=== PATIENT | male | born 1955 | race African-American/Black ===

== ENCOUNTER 2016-10-22 21:48 | Emergency (ER) | payer MEDICAID ==
[~2016-10-22] VITALS: Ht 167.6 cm; Wt 136.4 kg
[~2016-10-22 21:48] MED LIST: ATOR-2 PO; BRIM15DR2 EACHEYE; FURO40TA5 PO; GABA-531 PO; GLIP10TA10 PO; LATA2.5D2 EACHEYE; LOSA50TA20 PO; METF10002 PO; RIVA20TA PO; [UNRECOGNIZED DRUG - OTHER] PO; [UNRECOGNIZED DRUG - OTHER] PO
[2016-10-22 23:32] LABS: CLARITY URINE CLEAR (CLEAR); COLOR URINE YELLOW (YELLOW); GLUCOSE URINE NEGATIVE (NEGATIVE); KETONES URINE NEGATIVE (NEGATIVE); LEUKOCYTE ESTERASE URINE NEGATIVE (NEGATIVE); NITRITE URINE NEGATIVE (NEGATIVE); OCCULT BLOOD URINE NEGATIVE (NEGATIVE); PROTEIN URINE 2+ (NEGATIVE); SPECIFIC GRAVITY URINE 1.018 (1.005-1.030); UROBILINOGEN URINE 0.2 E.U./dL (0.2-1.0)
[2016-10-22 23:42] LABS: *AMPHETAMINES SCREEN URINE NEGATIVE (NEGATIVE); *BARBITURATES SCREEN URINE NEGATIVE (NEGATIVE); *BENZODIAZEPINES SCREEN URINE NEGATIVE (NEGATIVE); *COCAINE SCREEN URINE PRESUMTIVE POSITIVE (NEGATIVE); CANNABINOID URINE SCREEN NEGATIVE (NEGATIVE); METHADONE URINE SCREEN NEGATIVE (NEGATIVE); OPIATES URINE SCREEN NEGATIVE (NEGATIVE); PHENCYCLIDINE URINE SCREEN NEGATIVE (NEGATIVE)
[2016-10-22 23:56] LABS: CHLORIDE 109 mEq/L (98-107)
[2016-10-22 23:57] LABS: BASOPHILS % 0.5 % (0.0-2.0); EOSINOPHILS % 2.8 % (0.0-5.0); HEMATOCRIT. 30.2 % (42.0-52.0); LYMPHOCYTES % 28.3 % (20.0-50.0); MEAN CORPUSCULAR HEMOGLOBIN 33.2 pg (28.0-32.0); MEAN CORPUSCULAR VOLUME 100.4 fL (80.0-94.0); MEAN PLATELET VOLUME 8.4 fl (7.4-10.4); MONOCYTES % 7.3 % (2.0-8.0); NEUTROPHILS % 61.1 % (40.0-76.0); PLATELET 243 x1000/uL (130-400); RED BLOOD CELL COUNT 3.01 mill/uL (4.7-6.1); RED CELL DISTRIBUTION WIDTH 16.2 % (11.6-14.6)
[2016-10-23 00:02] LABS: PROTHROMBIN TIME 10.7 sec
[2016-10-23 00:12] LABS: CARBON DIOXIDE 25 mEq/L (21-32); ETHANOL BLOOD < 10 mg/dL
[2016-10-23] MEDS ORDERED: HYDROCODONE/ACETAMINOPHEN 5/325MG TABLET PO ONE (01:45)
[2016-10-23] MEDS: GABAPENTIN 300MG CAPSULE PO SCH ×2 (02:03→14:00)
[2016-10-23] MEDS ORDERED: LOSARTAN POTASSIUM 50 MG TABLET PO ONE (14:00)
[2016-10-23 15:11] VITALS: BP 134/71
[2016-10-23] MEDS ORDERED: RIVAROXABAN 10 MG TABLET PO SCH (17:00)
== END 2016-10-23 15:16 | disposition home or self-care (01) ==
LOC: ER 21:48
DX: R53.1 Weakness (principal); R56.9 Unspecified convulsions; E66.01 Morbid (severe) obesity due to excess calories; G47.9 Sleep disorder, unspecified; R21 Rash and other nonspecific skin eruption; F17.200 Nicotine dependence, unspecified, uncomplicated; F12.10 Cannabis abuse, uncomplicated; I50.9 Heart failure, unspecified; I11.0 Hypertensive heart disease with heart failure; E11.9 Type 2 diabetes mellitus without complications; H40.9 Unspecified glaucoma; Z86.718 Personal history of other venous thrombosis and embolism; Z86.73 Personal history of transient ischemic attack (TIA), and cerebral infarction without residual deficits; Z79.01 Long term (current) use of anticoagulants
CPT/HCPCS: 36415; 80053; 80305; 80307; 80329; 81001; 84443; 85025; 85610; 93005; 99285; G0482; Z7610

== ENCOUNTER 2017-04-23 20:53 | Emergency (ER) | payer MEDICAID ==
[~2017-04-23] VITALS: Ht 167.6 cm; Wt 115.3 kg
[~2017-04-23 20:53] MED LIST changes: +AMLO10TA80 PO; +LOSA100T14 PO; -LOSA50TA20 PO; +METF-416 PO; -METF10002 PO
[2017-04-24] MEDS ORDERED: ACETAMINOPHEN 325MG TABLET PO ONE (01:15)
[2017-04-24] MEDS ORDERED: IBUPROFEN 600MG TABLET PO ONE (08:45)
[2017-04-24 11:03] VITALS: BP 123/74
== END 2017-04-24 12:57 | disposition home or self-care (01) ==
LOC: ER 22:13
DX: M25.559 Pain in unspecified hip (principal); G89.29 Other chronic pain; E11.9 Type 2 diabetes mellitus without complications; F17.200 Nicotine dependence, unspecified, uncomplicated; I10 Essential (primary) hypertension; Z86.73 Personal history of transient ischemic attack (TIA), and cerebral infarction without residual deficits; Z96.649 Presence of unspecified artificial hip joint; Z59.0 Homelessness
CPT/HCPCS: 99283

== ENCOUNTER 2017-04-25 11:23 | Emergency (ER) | payer MEDICAID ==
[~2017-04-25] VITALS: Ht 172.7 cm; Wt 110.0 kg
[~2017-04-25 11:23] MED LIST changes: -METF-416 PO; +METF10002 PO
[2017-04-25] MEDS ORDERED: ONDANSETRON HCL 4MG TABLET PO ONE (14:30)
[2017-04-25] MEDS ORDERED: IBUPROFEN 800MG TABLET PO ONE (14:45)
[2017-04-25 14:58] LABS: BASOPHILS % 0.7 % (0.0-2.0); EOSINOPHILS % 0.6 % (0.0-5.0); HEMATOCRIT. 34.4 % (42.0-52.0); HEMOGLOBIN. 10.9 g/dL (14.0-18.0); LYMPHOCYTES % 20.9 % (20.0-50.0); MEAN CORPUSCULAR HEMOGLOBIN 30.1 pg (28.0-32.0); MEAN CORPUSCULAR VOLUME 94.6 fL (80.0-94.0); MEAN PLATELET VOLUME 9.2 fl (7.4-10.4); MONOCYTES % 7.5 % (2.0-8.0); NEUTROPHILS % 70.3 % (40.0-76.0); PLATELET 311 x1000/uL (130-400); RED BLOOD CELL COUNT 3.63 mill/uL (4.7-6.1); RED CELL DISTRIBUTION WIDTH 14.6 % (11.6-14.6)
[2017-04-25 15:04] LABS: CARBON DIOXIDE 27 mEq/L (21-32); CHLORIDE 108 mEq/L (98-107); ETHANOL BLOOD < 10 mg/dL
[2017-04-25 22:00] VITALS: BP 126/74
== END 2017-04-25 22:48 | disposition home or self-care (01) ==
LOC: ER 11:31
DX: R42 Dizziness and giddiness (principal); I10 Essential (primary) hypertension; E11.9 Type 2 diabetes mellitus without complications; Z96.649 Presence of unspecified artificial hip joint; Z86.73 Personal history of transient ischemic attack (TIA), and cerebral infarction without residual deficits
CPT/HCPCS: 36415; 80053; 80307; 80329; 85025; 99284; G0482; Q0162

== ENCOUNTER 2017-04-27 19:13 | Emergency (ER) | payer MEDICAID ==
[~2017-04-27] VITALS: Ht 167.6 cm; Wt 115.0 kg
[2017-04-28 15:55] VITALS: BP 136/81
== END 2017-04-28 15:59 | disposition home or self-care (01) ==
LOC: ER 19:13
DX: I10 Essential (primary) hypertension (principal); R53.1 Weakness; E11.9 Type 2 diabetes mellitus without complications; E66.01 Morbid (severe) obesity due to excess calories; E78.00 Pure hypercholesterolemia, unspecified; Z79.84 Long term (current) use of oral hypoglycemic drugs; Z59.0 Homelessness; Z86.73 Personal history of transient ischemic attack (TIA), and cerebral infarction without residual deficits; Z96.649 Presence of unspecified artificial hip joint; Z86.718 Personal history of other venous thrombosis and embolism
CPT/HCPCS: 82962; 99283